=== PATIENT | female | born 1950 | race Caucasian/White ===

== ENCOUNTER 2019-04-28 20:23 | Emergency (ER) | payer MEDICARE ==
--- OUTSIDE RECORDS SUMMARY | 2019-04-28 20:27 | XMS REPORT | Continuity of Care Document ---
:1950 External Reference #:[id number] Author Name Esmerezekiel Pandey, MICROBIOLOGY COORDINATOR-Cde (transmitted by agent of provider April Martins) Address [address], [place] [address] Care Team Providers Name Role Phone Latrell Gan MD - Gastroenterology Care Team Information Welder Machine Operator [phone] Tonia Mcdaniel MD - Internal Medicine Care Team Information Welder Machine Operator [phone] Problems Active Problems Provider Date Mixed hyperlipidemia Karthik Houston M.D. Onset: 05/26/2011 Hypothyroidism Karthik Houston M.D. Onset: 05/26/2011 History of total hysterectomy with bilateral Santos Montaño NP Onset: 2008 salpingo-oophorectomy Note: total abdominal hyste[place] [facility] [place]/ Dr. Pimentel and assisted by Dr. Fay. D/t post-menopausal bleeding and endometrial adenocarcinoma well differentiated Diverticulosis of sigmoid colon Santos Montaño NP Onset: 12/14/2003 Note: very mild; noted on 2003 colonoscopy Essential hypertension Santos Montaño NP Onset: 04/13/2016 Social History Type Date Description Comments Sex Unknown Tobacco Use Reviewed: 08/29/18 Current Cigarette Smoker 2 PPD currently 2018 1 Pack Daily and 2019 Smoking Status Reviewed: 04/13/19 Current Cigarette Smoker 2 PPD currently 2018 1 Pack Daily and 2019 ETOH Use Currently consumes 2-3 glasses wine alcohol daily Tobacco Use Start: Unknown Patient is a current smoker, smokes every day Exercise Does not exercise Type/Frequency Allergies, Adverse Reactions, Alerts Active Allergies Reaction Severity Comments Date Codeine Makes Her Feel Jittery 06/21/2007 Medications Active Medications SIG Qnty Indications Ordering Date Provider Fluticasone Propionate 2 sprays each 16units J30.89 Sea Ellis NP 2017 nostril qd. 50mcg/Act Suspension Proair HFA 2 puffs inhaled 1inhaler 465.9 Sea Ellis NP 02/15/2017 108(90Base) q4-6h prn mcg/Act Aerosol Valsartan-Hydrochlorot take 1 tablet 90tabs I10 Sea Ellis NP 02/28/2012 hiazide by mouth daily 160-25mg Tablets Atorvastatin Calcium take 1 tablet 90tabs E78.2 Sea Ellis NP 11/03/2011 20mg at bedtime Tablets Levothyroxine Sodium take 1 tablet 90tabs E03.9 Sea Ellis NP 12/16/2010 by mouth daily 100mcg Tablets Aspirin 1 po qd 90tabs E78.2 Karthik Gaines 81mg Tablets Merry Houston I10 Zyrtec 1 PO qd prn 90tabs Unknown 10mg Tabs Atenolol take 1 tablet by mouth 90tabs I10 Sea Ellis NP 25mg Tablets daily History Medications Fluconazole one by mouth august 2tabs Sea Ellis NP 12/20/2018 - 150mg Tablets repeat in 3 days 12/24/2018 as needed Immunizations CPT Code Status Date Vaccine Reaction Lot # [id number] Given 04/13/2019 Influenza Virus Vaccine, [id number] Quadrivalent, Split, Preservative Free [id number] Given 08/29/2018 Pneumococcal Conjugate No immediate reaction [id number] Vaccine 13 Valent For Intramuscular Use 20969 Given 02/28/2018 Influenza Virus Vaccine, Quadrivalent, Split, Preservative Free 34669 Given 04/07/2017 Influenza Virus Vaccine, [id number] Quadrivalent, Split, Preservative Free 74857 Given 04/13/2016 Influ Virus Vaccine, [id number] Quadrivalent, Split Virus, [place] [address] Given 04/17/2015 Influenza Virus Vaccine, [id number] Quadrivalent, Split, Preservative Free 70003 Given 01/09/2014 Influenza Virus Vaccine, [id number] Quadrivalent, Split, Preservative Free 76304 Given 02/15/2013 Pneumonia Vaccine [id number] 54456 Given 02/15/2013 Flu Vaccine Split Virus [id number] Preservative Free For Indiv 3Yr Older 21100 Given 12/24/2011 Tdap - [id number] Tetanus/Diptheria/Acellula r Pertussis Vital Signs Date Vital Result Comment 04/13/2019 2:15pm Height 65 inches 5'5" Weight 193.00 lb Heart Rate 75 /min BP Systolic 125 mmHg BP Diastolic 76 mmHg O2 % BldC Oximetry 97 % BMI (Body Mass Index) 32.1 kg/m2 10/31/2018 2:42pm Height 65 inches 5'5" Weight 188.38 lb Heart Rate 78 /min BP Systolic 133 mmHg BP Diastolic 78 mmHg Body Temperature 98.9 F O2 % BldC Oximetry 95 % BMI (Body Mass Index) 31.3 kg/m2 Results Test Acquired Date Facility Test Result H/L Range Note Laboratory test 10/31/2018 [facility] Vitamin B12 566 pg/mL Normal 180-914 [address] [place] [address] [phone] TSH (Thyroid Stim Horm) 2.25 mcIU/mL Normal 0.34-5.60 Comp Metabolic 10/31/2018 [facility] Sodium 140 mmol/L Normal 135-[address] [place], [place] [id number] [phone] Potassium 4.9 mmol/L Normal 3.5-5.0 Chloride 107 mmol/L Normal 101-111 Co2 Carbon Dioxide 26 mmol/L Normal 22-32 Anion Gap 7 mmol/L Normal 2-11 Glucose 114 mg/dL High 70-100 Blood Urea Nitrogen 16 mg/dL Normal 6-24 Creatinine 1.13 mg/dL High 0.51-0.95 BUN/Creatinine Ratio 14.2 Normal 8-20 Calcium 10.0 mg/dL Normal 8.6-10.3 Total Protein 7.6 g/dL Normal 6.4-8.9 Albumin 4.1 g/dL Normal 3.2-5.2 Globulin 3.5 g/dL Normal 2-4 Albumin/Globulin Ratio 1.2 Normal 1-3 Total Bilirubin 1.00 mg/dL Normal 0.2-1.0 Alkaline Phosphatase 158 U/L High 34-104 Alt 48 U/L Normal 7-52 Ast 98 U/L High 13-39 Egfr Non- 48.2 >60 Egfr 58.3 >60 2 CBC Auto 10/31/2018 [facility] White Blood 5.7 10^3/uL Normal 3.5-10.[address] [place] [address] [phone] Red Blood Count 3.71 10^6/uL Normal 3.70-4.87 Hemoglobin 14.7 g/dL Normal 12.0-16.0 Hematocrit 43 % Normal 35-47 Mean Corpuscular Volume 115 fL High 80-97 Mean Corpuscular Hemoglobin 40 pg High 27-31 Mean Corpuscular HGB Conc 34 g/dL Normal 31-36 Red Cell Distribution Width 14 % Normal 10-15 Platelet Count 148 10^3/uL Low 150-450 Mean Platelet Volume 9.0 fL Normal 7.4-10.4 Abs Neutrophils 4.0 10^3/uL Normal 1.5-7.7 Abs Lymphocytes 1.0 10^3/uL Normal 1.0-4.8 Abs Monocytes 0.5 10^3/uL Normal 0-0.8 Abs Eosinophils 0.1 10^3/uL Normal 0-0.6 Abs Basophils 0.1 10^3/uL Normal 0-0.2 Abs Nucleated RBC 0.0 10^3/uL Granulocyte % 71.2 % Lymphocyte % 17.6 % Monocyte % 8.8 % Eosinophil % 1.4 % Basophil % 1.0 % Nucleated Red Blood Cells % 0.1 Cell Morphology 10/31/2018 [facility] Macrocytosis 2+ [address] [place] [address] [phone] Stomatocytes 1+ 1 Normal Range 180 to 914 Indeterminate Range 145 to 180 Deficient Range <145 2 Because ethnic data is not always readily available, this report includes an eGFR for both -Americans and non- Americans. The National Kidney Disease Education Program (NKDEP) does not endorse the use of the MDRD equation for patients that are not between the ages of 18 and 70, are , have extremes of body size, muscle mass, or nutritional status, or are non- or non-. According to the National Kidney Foundation, irrespective of diagnosis, the stage of the disease is based on the level of kidney function: Stage Description GFR(mL/min/1.73 m(2)) 1 Kidney damage with normal or decreased GFR 90 2 Kidney damage with mild decrease in GFR 60-89 3 Moderate decrease in GFR 30-59 4 Severe decrease in GFR 15-29 5 Kidney failure <15 (or dialysis) Procedures Date Code Description Status 04/14/2018 69383450 Mammogram Completed 04/13/2017 [id number] Bone Mineral Density Test Completed 04/13/2017 [id number] Mammogram Completed 01/05/2017 [id number] Colonoscopy Completed 04/09/2016 [id number] Mammogram Completed 04/12/2015 [id number] Mammogram Completed 04/11/2014 [id number] Mammogram Completed 04/18/2013 [id number] Bone Mineral Density Test Completed 04/18/2013 [id number] Mammogram Completed 04/18/2012 [id number] Mammogram Completed 04/15/2011 [id number] Mammogram Completed 11/28/2003 60852220 Colonoscopy Completed Medical Devices Description No Information Available Encounters Type Date Location Provider Dx Diagnosis Office Visit 10/31/2018 [facility] Sea Ellis NP I10 Essential (primary ) 2:20p Medicine - Ccmob hypertension R20.2 Paresthesia of skin L60.0 Ingrowing nail Assessments Date Code Description Provider 04/13/2019 Z01.419 Encounter for gynecological examination Estee Lal (general) (routine) without abnormal findings 04/13/2019 Z12.31 Encounter for screening mammogram for NIXON Lal malignant neoplasm of breast 10/31/2018 I10 Essential (primary) hypertension Sea Ellis NP 10/31/2018 R20.2 Paresthesia of skin Sea Ellis NP 10/31/2018 L60.0 Ingrowing nail Sea Ellis NP Plan of Treatment 04/13/2019 - CORNELIA Lal-CdeZ01.419 Encounter for gynecological examination (general) (routine) without abnormal findingsNew Labs:Cytology, Ordered: 04/13/19Comments:1. For bone health, the recommended amount of calcium is 1200 mg/day. You might benefit from a supplement such as Citracal Petites to make this requirement2. Including a strength training component in your exercise routine is also important for maintaining bone health and muscle strength. I will send you a letter with pap results. Please call the office if you do not receive your results within two weeks.Z12.31 Encounter for screening mammogram for malignant neoplasm of breastNew Xrays:Mammogram Screening Frandy, Ordered: 04/13/19Comments:The radiologist will send you a letter with the results of your mammogram. Please call us if you have any additional quesions or concerns about the test or results. Functional Status Description No Information Available Mental Status Description No Information Available Referrals Refer to Dr Reason for Referral Status Appt Date Arsenio Jain DPM Sent 12/20/2018 [address] [facility] [facility] [address] [place] [address] [phone]
[2019-04-28 20:41] VITALS: BP 155/75
--- NOTE | 2019-04-28 20:47 | UC ---
Head Injury HPI - HPI Summary HPI Summary: 68yo woman who fell about an hour ago. She was walking backwards into her house when she tripped on the entry, and fell directly backwards, and believes that she hit some wine bottles as she hit the ground. No neck pain, no headache, feels a little out of sorts and concerned about the injury. She takes daily aspirin and drinks a minimum of 2 glasses of wine per day, often more. - History Of Current Complaint Chief Complaint: UCHeadInjury Stated Complaint: HEAD INJURY Time Seen by Provider: 04/28/19 20:35 Hx Obtained From: Patient Onset/Duration: Sudden Onset Severity Currently: Mild Severity Initially: Mild Pain Intensity: 2 Character: Dull Aggravating Factor(s): Nothing Alleviating Factor(s): Nothing Associated Signs And Symptoms: Negative: LOC (Time In Secs./Mins/Hrs), Confusion , Memory Loss, Seizure, Epistaxis, Neck Pain, Nausea, Vomiting Anticoagulant Therapy: ASA - Risk Factors SDH Risk Factor: Alcohol Abuse - Allergies/Home Medications Allergies/Adverse Reactions: Allergies Allergy/AdvReac Type Severity Reaction Status Date / Time codeine Allergy See Comment Verified 04/28/19 20:41 PMH/Surg Hx/FS Hx/Imm Hx Endocrine History: Hypothyroidism, Dyslipidemia Cardiovascular History: Hypertension - Surgical History Surgical History: Yes Surgery Procedure, Year, and Place: HYSTERECTOMY 2008 - Family History Known Family History: Positive: Non-Contributory - Social History Occupation: Employed Part-time Alcohol Use: Daily Substance Use Type: None Smoking Status (MU): Heavy Every Day Tobacco Smoker Type: Cigarettes Review of Systems All Other Systems Reviewed And Are Negative: Yes Constitutional: Positive: Negative Skin: Positive: Negative Eyes: Negative: Blurred Vision, Diplopia, Photophobia ENT: Positive: Negative Respiratory: Positive: Negative Cardiovascular: Positive: Negative Gastrointestinal: Positive: Negative Genitourinary: Positive: Negative Motor: Positive: Negative Musculoskeletal: Negative: Arthralgia Neurological: Positive: Headache - mild Psychological: Positive: Negative Is Patient Immunocompromised?: No Physical Exam Triage Information Reviewed: Yes Appearance: No Pain Distress, Other: - mildly anxious, looks older than age. Vital Signs: Initial Vital Signs Temp 98.7 F 04/28/19 20:37 Pulse 76 04/28/19 20:37 Resp 18 04/28/19 20:37 BP 155/75 04/28/19 20:37 Pulse Ox 97 04/28/19 20:37 Eye Exam: Other - JOSEPH, normal eom Eyes: Positive: Conjunctiva Clear ENT: Positive: Pharynx normal, TMs normal Respiratory: Positive: Lungs clear, Normal breath sounds Cardiovascular: Positive: RRR, No Murmur Musculoskeletal Exam: Normal Neurological Exam: Other - Alert and oriented. CNII-XII normal. No pronator drift. Gait normal, can heel to toe walk, negative Romberg No past pointing with finger to nose touching. Neurological: Positive: Alert, Muscle Tone Normal Psychological Exam: Normal - mildly anxious Diagnostics - Radiology No standard instances Radiology Interpretation Completed By: Radiologist - Patient Name: DEWAYNE TORO I Medical Record#: [id number] Ordering Physician: Lorna Almaguer MD Acct.#: [id number] : 1950 Age: 68 Sex: F Location: [facility] Exam Date: 04/28/192057 ADM Status: REG ER Order Information: CT BRAIN WO Accession Number: [id number] CPT: 84786 PROCEDURE INFORMATION: Exam: CT Head Without Contrast Exam date and time: 04/28/2019 9:07 PM Age: 68 years old Clinical indication: Injury or trauma; Fall; Patient HX: Patient is on baby aspirin; Additional info : Fall onto occiput, takes aspirin TECHNIQUE: Imaging protocol: Computed tomography of the head without contrast. Radiation optimization: All CT scans at this facility use at least one of these dose optimization techniques: automated exposure control; mA and/or kV adjustment per patient size (includes targeted exams where dose is matched to clinical indication); or iterative reconstruction. COMPARISON: No relevant prior studies available. FINDINGS: Brain: No acute intracranial hemorrhage, midline shift or mass effect. No cerebral edema. Ventricles: No hydrocephalus. Bones/joints: Unremarkable. No acute fracture. Sinuses: Visualized sinuses are unremarkable. No fluid levels. Mastoid air cells: Visualized mastoid air cells are well aerated. Soft tissues: Left posterior scalp soft tissue injury. IMPRESSION: No acute intracranial abnormality. Dictated and Authenticated by: Jn Massey MD 04/28 9:34 PM Eastern Time ([place] and [place]) To contact [facility] with a general question: [facility] - [phone] For direct physician to physician contact: Physician Hotline - [phone] [facility] ([facility] Facility ID #[id number]) <Electronically signed by Jn Massey MD in OV> 04/28/192133 Dictated By: Jn Massey MD Dictated Date/Time: 04/28/192106 Transcribed Date/Time: 04/28/192106 Copy to: This report is only to be considered final once signed by the Provider(s) as displayed in the "<Electronically Signed by >" field (s). Absence of a signature indicates the report is in a draft status and still needs to be finalized. In the event this document was created by someone other than the signing Provider, the individual initiating the document will be listed in the "Entered by:" or "Dictated by:" hennessy. 1 of 2 Head Injury Course/Dx - Course Course Of Treatment: Normal CT at baseline. Discussed concern of aspirin use and regular daily alcohol intake. Suggested hold aspirin and alcohol, monitor for symptoms which would suggest a subdural. - Differential Dx/Diagnosis Differential Diagnosis/HQI/PQRI: Cervical Sprain, Concussion Without LOC, Contusion, Intracranial Bleed, Other - subdural hemorrhage. Provider Diagnosis: Head injury due to trauma Discharge ED - Sign-Out/Discharge Documenting (check all that apply): Patient Departure All imaging exams completed and their final reports reviewed: Yes - Discharge Plan Condition: Stable Disposition: HOME Patient Education Materials: Head Injury (ED) Referrals: Sea Ellis PERSONAL LOAN SPECIALIST [Primary Care Provider] - Additional Instructions: Yor CT scan and exam are normal. Because you take aspirin and drink alcohol regularly, you have a low risk of subdural hemorrhage. Signs of this would be progressive headache, dizziness, nausea and vision changes. If you hare having symptoms, follow up with your primary care doctor or go directly to the emergency room. Please hold aspirin ofr the next five days and keep alcohol intake to a minimum. You can use acetaminophen 650mg every 6 hours for any mild headache or neck pain. Anticipate some neck stiffness tomorrow. - Billing Disposition and Condition Condition: STABLE Disposition: Home
== END 2019-04-28 22:08 | disposition home or self-care (01) ==
LOC: UCEAST 20:23
DX: S09.90XA Unspecified injury of head, initial encounter (principal); I10 Essential (primary) hypertension; F17.210 Nicotine dependence, cigarettes, uncomplicated; Z79.82 Long term (current) use of aspirin; Z88.5 Allergy status to narcotic agent; W01.198A Fall on same level from slipping, tripping and stumbling with subsequent striking against other object, initial encounter; Y93.01 Activity, walking, marching and hiking; Y92.009 Unspecified place in unspecified non-institutional (private) residence as the place of occurrence of the external cause
CPT/HCPCS: 70450; 99211; G0463

== ENCOUNTER 2020-01-07 19:47 | Inpatient (IN) ==
[2020-01-07] MEDS ORDERED: NS 0.9% 1000 ml BAG 1,000 ML IV ONE (20:39)
[2020-01-07] MEDS ORDERED: Thiamine 100 MG/ML 2 ml VIAL (200 mg) IM ONE (20:39)
[2020-01-07] MEDS ORDERED: Ondansetron 4 mg VIAL 2 MG/ML 2 ml VIAL IV ONE (20:41)
[2020-01-07 21:07] LABS: ABS Monocytes 0.6 10^3/ul (0-0.8); Eosinophil % 0.4 %; Hematocrit 41 % (35-47); Hemoglobin 13.9 g/dL (12.0-16.0); Lymphocyte % 13.6 %; Mean Corpuscular HGB Conc 34 g/dL (31-36); Mean Corpuscular Hemoglobin 38 pg (27-31); Mean Corpuscular Volume 112 fL (80-97); Mean Platelet Volume 8.4 fL (7.4-10.4); Nucleated Red Blood Cells % 0.2; Platelet Count 138 10^3/uL (150-450); Red Blood Count 3.68 10^6 /uL (3.70-4.87); Red Cell Distribution Width 16 % (10-15); White Blood Count 7.7 10^3/uL (3.5-10.8)
[2020-01-07 21:22] LABS: Acetaminophen < 15 mcg/mL; Alcohol, S < 10 mg/dL (<10)
[2020-01-07 21:26] LABS: ALT 56 U/L (7-52); AST 94 U/L (13-39); Albumin 3.2 g/dL (3.2-5.2); Albumin/Globulin Ratio 0.8 (1-3); Alkaline Phosphatase 169 U/L (34-104); Anion Gap 11 mmol/L (2-11); BUN/Creatinine Ratio 11.7 (8-20); Blood Urea Nitrogen 11 mg/dL (6-24); CO2 Carbon Dioxide 23 mmol/L (22-32); Calcium 10.6 mg/dL (8.6-10.3); Chloride 101 mmol/L (101-111); EGFR African American 71.9 (>60); EGFR Non-African American 59.4 (>60); Globulin 4.1 g/dL (2-4); Glucose 129 mg/dL (70-100); Potassium 3.3 mmol/L (3.5-5.0); Sodium 135 mmol/L (135-145); Total Protein 7.3 g/dL (6.4-8.9)
[2020-01-07 21:29] LABS: Troponin I 0.03 ng/mL (<0.03)
[2020-01-07 21:42] LABS: TSH Ultra Thyroid Stim Horm 0.02 mcIU/mL (0.34-5.60)
[2020-01-07] MEDS ORDERED: Iodixanol (CONTRAST) 320 MG/ML 100 ML SDV IV ONE (22:25)
[2020-01-07 23:55] LABS: Urine Appearance Cloudy; Urine Bilirubin 1+ (Negative); Urine Blood Negative (Negative); Urine Color Amber; Urine Glucose Negative (Negative); Urine Ketones Negative (Negative); Urine Nitrite Negative (Negative); Urine Protein 1+(30 mg/dL) (Negative); Urine Urobilinogen Positive (Negative)
[2020-01-08 00:02] LABS: Urine Bacteria Absent (Absent); Urine Red Blood Cell 1+(3-5/hpf) (Absent); Urine Squamous Epithelial Cell Present (Absent); Urine White Blood Cell Absent (Absent)
[2020-01-08 00:18] LABS: Urine Specific Gravity > 1.030 (1.010-1.030)
[2020-01-08] MEDS ORDERED: Ondansetron 4 mg VIAL 2 MG/ML 2 ml VIAL IV PRN (01:28)
[2020-01-08] MEDS ORDERED: Al Hydrox/Mg Hydrox/Simet LIQ 30 ML UDC PO PRN (01:28)
[2020-01-08] MEDS ORDERED: Potassium Chloride LIQUID 20 MEQ/15 ML LIQUID PO ONE (01:34)
[2020-01-08] MEDS ORDERED: Pantoprazole VIAL 40 MG VIAL IV ONE (01:50)
[2020-01-08] MEDS ORDERED: Lactulose 30 ml UDC PO ONE (02:00)
[2020-01-08] MEDS ORDERED: LORazepam 2 mg VIAL 1 ml IV PUSH SCH (02:00)
[2020-01-08 02:07] LABS: Magnesium 1.3 mg/dL (1.9-2.7)
[2020-01-08] MEDS ORDERED: Magnesium Sulfate IV 3 GM in NS 0.9% 100 ml BAG 100 ML IVPB ONE (02:11)
[2020-01-08 02:26] LABS: Free T4 2.35 ng/dL (0.61-1.12)
[2020-01-08 02:34] LABS: Folate 2.13 ng/mL (>3.99)
[2020-01-08 02:35] LABS: Vitamin B12 992 pg/mL (180-914)
[2020-01-08 02:51] LABS: Activated Partial Thrombo Time 28.3 seconds (26.0-38.0)
[2020-01-08 03:05] LABS: Troponin I 0.03 ng/mL (<0.03)
[2020-01-08 04:03] LABS: Erythrocyte Sed Rate 48 mm/Hr (0-29)
[2020-01-08] MEDS: Nicotine PATCH 21 MG/24 HR PATCH TRANSDERM SCH (04:03)
[2020-01-08] MEDS: NS 0.9% 1000 ml BAG 1,000 ML IV SCH ×2 (04:04→14:12)
[2020-01-08 04:57] LABS: INR 1.47 (0.82-1.09)
[2020-01-08] MEDS: Heparin 5000 UNITS/ML 1 mL VIAL SUBCUT SCH ×3 (05:06→22:21)
[2020-01-08 07:54] LABS: ALT 50 U/L (7-52); AST 82 U/L (13-39); Albumin/Globulin Ratio 0.8 (1-3); Alkaline Phosphatase 151 U/L (34-104); Anion Gap 7 mmol/L (2-11); BUN/Creatinine Ratio 11.4 (8-20); Blood Urea Nitrogen 10 mg/dL (6-24); CO2 Carbon Dioxide 23 mmol/L (22-32); Chloride 107 mmol/L (101-111); EGFR African American 77.6 (>60); EGFR Non-African American 64.1 (>60); Globulin 3.7 g/dL (2-4); Glucose 87 mg/dL (70-100); Indirect Bilirubin 1.3 mg/dL (0.3-1.0); Potassium 3.7 mmol/L (3.5-5.0); Sodium 137 mmol/L (135-145); Total Protein 6.7 g/dL (6.4-8.9)
[2020-01-08] MEDS: Lactulose 30 ml UDC PO SCH ×4 (07:57→20:57)
[2020-01-08] MEDS: Multivitamins/Minerals TAB PO SCH (07:58)
[2020-01-08 08:02] LABS: Troponin I 0.03 ng/mL (<0.03)
[2020-01-08 08:25] LABS: ABS Eosinophils 0.1 10^3/ul (0-0.6); ABS Lymphocytes 1.9 10^3/ul (1.0-4.8); ABS Monocytes 0.7 10^3/ul (0-0.8); ABS Neutrophils 5.8 10^3/ul (1.5-7.7); Eosinophil % 0.8 %; Hematocrit 39 % (35-47); Mean Corpuscular HGB Conc 33 g/dL (31-36); Mean Corpuscular Hemoglobin 38 pg (27-31); Mean Corpuscular Volume 114 fL (80-97); Mean Platelet Volume 8.9 fL (7.4-10.4); Nucleated Red Blood Cells % 0.2; Platelet Count 139 10^3/uL (150-450); Red Blood Count 3.45 10^6 /uL (3.70-4.87); Red Cell Distribution Width 16 % (10-15); White Blood Count 8.4 10^3/uL (3.5-10.8)
[2020-01-08 11:22] LABS: Magnesium 1.3 mg/dL (1.9-2.7)
[2020-01-08 13:49] LABS: Hepatitis A Ab IgM Negative (Negative)
[2020-01-09] MEDS: NS 0.9% 1000 ml BAG 1,000 ML IV SCH (00:45)
[2020-01-09 05:18] LABS: Hematocrit 33 % (35-47); Hemoglobin 11.1 g/dL (12.0-16.0); Mean Corpuscular HGB Conc 33 g/dL (31-36); Mean Corpuscular Hemoglobin 38 pg (27-31); Mean Corpuscular Volume 114 fL (80-97); Mean Platelet Volume 8.7 fL (7.4-10.4); Platelet Count 120 10^3/uL (150-450); Red Blood Count 2.93 10^6 /uL (3.70-4.87); Red Cell Distribution Width 16 % (10-15); White Blood Count 6.8 10^3/uL (3.5-10.8)
[2020-01-09 05:34] LABS: Albumin 2.5 g/dL (3.2-5.2); Albumin/Globulin Ratio 0.8 (1-3); BUN/Creatinine Ratio 12.4 (8-20); Calcium 9.4 mg/dL (8.6-10.3); EGFR African American 76.5 (>60); EGFR Non-African American 63.3 (>60); Globulin 3.2 g/dL (2-4); Magnesium 1.9 mg/dL (1.9-2.7); Potassium 3.6 mmol/L (3.5-5.0); Total Bilirubin 1.7 mg/dL (0.2-1.0); Total Protein 5.7 g/dL (6.4-8.9)
[2020-01-09] MEDS: Heparin 5000 UNITS/ML 1 mL VIAL SUBCUT SCH ×2 (06:08→15:59)
[2020-01-09] MEDS ORDERED: Magnesium Sulfate 2 gm BAG 2 GM/50 ML BAG IVPB ONE (07:00)
[2020-01-09] MEDS: Lactulose 30 ml UDC PO SCH ×2 (08:59→15:58)
[2020-01-09] MEDS: Nicotine PATCH 21 MG/24 HR PATCH TRANSDERM SCH (09:01)
[2020-01-09] MEDS: Multivitamins/Minerals TAB PO SCH (09:01)
[2020-01-09 22:17] VITALS: BP 110/50
== END 2020-01-09 19:05 | disposition home or self-care (01) | DRG 443 ==
LOC: MED 19:47 → ED 19:47 → MED 01-08 02:54
PROVIDERS: ADMIT Pediatrics; ATTEND Internal Medicine

== ENCOUNTER 2020-02-02 18:42 | Observation (INO) ==
[2020-02-02 22:15] LABS: ABS Eosinophils 0.1 10^3/ul (0-0.6); ABS Lymphocytes 1.3 10^3/ul (1.0-4.8); ABS Monocytes 1.3 10^3/ul (0-0.8); ABS Neutrophils 6.1 10^3/ul (1.5-7.7); Eosinophil % 0.6 %; Hematocrit 36 % (35-47); Lymphocyte % 14.6 %; Mean Corpuscular HGB Conc 34 g/dL (31-36); Mean Corpuscular Hemoglobin 37 pg (27-31); Mean Corpuscular Volume 110 fL (80-97); Mean Platelet Volume 8.2 fL (7.4-10.4); Platelet Count 195 10^3/uL (150-450); Red Blood Count 3.24 10^6 /uL (3.70-4.87); Red Cell Distribution Width 15 % (10-15); White Blood Count 8.8 10^3/uL (3.5-10.8)
[2020-02-02 22:26] LABS: Albumin 2.7 g/dL (3.2-5.2); Albumin/Globulin Ratio 0.7 (1-3); BUN/Creatinine Ratio 11.1 (8-20); C Reactive Protein 12.98 mg/L (<8.01); Calcium 9.8 mg/dL (8.6-10.3); EGFR African American 75.6 (>60); EGFR Non-African American 62.5 (>60); Globulin 4.1 g/dL (2-4); Potassium 4.8 mmol/L (3.5-5.0); Total Protein 6.8 g/dL (6.4-8.9)
[2020-02-03] MEDS ORDERED: Ondansetron 4 mg VIAL 2 MG/ML 2 ml VIAL IV PRN (00:36)
[2020-02-03] MEDS ORDERED: cefTRIAXone 1 gm/50 mL NS BAG 1 GM/50 ML BAG IVPB ONE (00:42)
[2020-02-03] MEDS ORDERED: NS 0.9% 500 ml BAG 500 ML IV ONE ×3 (01:15→19:57)
[2020-02-03] MEDS ORDERED: Albuterol HFA INHALER 8 gm MDI INH PRN (01:47)
[2020-02-03] MEDS: Enoxaparin 40 MG/0.4 ML SYR SUBCUT SCH ×2 (02:06→20:57)
[2020-02-03] MEDS: Multivitamins/Minerals TAB PO SCH (09:50)
[2020-02-03] MEDS: Aspirin EC 81 mg TAB.EC (enteric coated) PO SCH (09:50)
[2020-02-03 11:18] LABS: BUN/Creatinine Ratio 11.3 (8-20); Calcium 9.3 mg/dL (8.6-10.3); EGFR African American 69.3 (>60); EGFR Non-African American 57.3 (>60); Potassium 4.2 mmol/L (3.5-5.0)
[2020-02-03 11:40] LABS: TSH Ultra Thyroid Stim Horm 5.86 mcIU/mL (0.34-5.60)
[2020-02-03] MEDS: Nicotine PATCH 21 MG/24 HR PATCH TRANSDERM SCH (12:49)
[2020-02-03] MEDS ORDERED: Influenza VAC *QUAD* 2020-21* 0.5 ML SYRINGE IM ONE (13:00)
[2020-02-03 18:31] LABS: Urine Appearance Cloudy; Urine Bilirubin Negative (Negative); Urine Blood 3+ (Negative); Urine Color Amber; Urine Glucose Negative (Negative); Urine Ketones Trace (Negative); Urine Nitrite Negative (Negative); Urine Protein Negative (Negative); Urine Specific Gravity 1.024 (1.010-1.030); Urine Urobilinogen Negative (Negative)
[2020-02-03 18:36] LABS: Urine Bacteria 2+ (Absent); Urine Red Blood Cell 1+(3-5/hpf) (Absent); Urine Squamous Epithelial Cell Present (Absent); Urine White Blood Cell Trace(0-5/hpf) (Absent)
[2020-02-03 18:45] LABS: Urine Creatinine Concentration 260.87 mg/dL; Urine Potassium Concentration 74.9 mmol/L; Urine Sodium Concentration < 18 mmol/L
[2020-02-03 19:08] LABS: BUN/Creatinine Ratio 11.1 (8-20); Calcium 9.5 mg/dL (8.6-10.3); EGFR African American 67.7 (>60); EGFR Non-African American 55.9 (>60); Potassium 4.2 mmol/L (3.5-5.0)
[2020-02-03 19:42] LABS: Hematocrit 34 % (35-47); Hemoglobin 11.4 g/dL (12.0-16.0)
[2020-02-03] MEDS ORDERED: Witch Hazel PAD JAR TOPICAL PRN (20:00)
[2020-02-03] MEDS: Witch Hazel PAD JAR TOPICAL SCH (22:35)
[2020-02-04 00:14] LABS: BUN/Creatinine Ratio 11.1 (8-20); Calcium 9.5 mg/dL (8.6-10.3); EGFR African American 67.7 (>60); EGFR Non-African American 55.9 (>60); Potassium 4.4 mmol/L (3.5-5.0)
[2020-02-04] MEDS ORDERED: NS 0.9% 500 ml BAG 500 ML IV ONE (02:24)
[2020-02-04 06:50] LABS: ABS Basophils 0.1 10^3/ul (0-0.2); ABS Eosinophils 0.2 10^3/ul (0-0.6); ABS Lymphocytes 1.7 10^3/ul (1.0-4.8); ABS Monocytes 1.3 10^3/ul (0-0.8); ABS Neutrophils 4.8 10^3/ul (1.5-7.7); Eosinophil % 2.3 %; Hematocrit 30 % (35-47); Hemoglobin 10.2 g/dL (12.0-16.0); Lymphocyte % 21.2 %; Mean Corpuscular HGB Conc 34 g/dL (31-36); Mean Corpuscular Hemoglobin 37 pg (27-31); Mean Corpuscular Volume 108 fL (80-97); Mean Platelet Volume 8.2 fL (7.4-10.4); Nucleated Red Blood Cells % 0.1; Platelet Count 188 10^3/uL (150-450); Red Blood Count 2.76 10^6 /uL (3.70-4.87); Red Cell Distribution Width 15 % (10-15); White Blood Count 8.1 10^3/uL (3.5-10.8)
[2020-02-04 07:30] LABS: ALT 27 U/L (7-52); Albumin 2.3 g/dL (3.2-5.2); Albumin/Globulin Ratio 0.7 (1-3); Alkaline Phosphatase 115 U/L (34-104); BUN/Creatinine Ratio 12.5 (8-20); Blood Urea Nitrogen 12 mg/dL (6-24); CO2 Carbon Dioxide 19 mmol/L (22-32); Calcium 8.7 mg/dL (8.6-10.3); Chloride 104 mmol/L (101-111); EGFR African American 70.1 (>60); Globulin 3.5 g/dL (2-4); Glucose 112 mg/dL (70-100); Sodium 127 mmol/L (135-145); Total Protein 5.8 g/dL (6.4-8.9)
[2020-02-04 08:04] LABS: AST 47 U/L (13-39); Anion Gap 4 mmol/L (2-11); Indirect Bilirubin 1.2 mg/dL (0.3-1.0); Potassium 4.2 mmol/L (3.5-5.0)
[2020-02-04 08:48] LABS: % Iron Saturation 50 % (15-55); Iron 57 ug/dL (50-212); Total Iron Binding Capacity 115 mcg/dL (250-450); Transferrin 82 mg/dL (203-362); Unsaturated Iron Binding < 100 ug/dL
[2020-02-04 09:11] LABS: Ferritin 361.7 ng/mL (11-307)
[2020-02-04 09:15] LABS: Folate 8.46 ng/mL (>3.99); Vitamin B12 899 pg/mL (180-914)
[2020-02-04] MEDS: Multivitamins/Minerals TAB PO SCH (10:35)
[2020-02-04] MEDS: Aspirin EC 81 mg TAB.EC (enteric coated) PO SCH (10:35)
[2020-02-04] MEDS: Nicotine PATCH 21 MG/24 HR PATCH TRANSDERM SCH (10:35)
[2020-02-04] MEDS: Witch Hazel PAD JAR TOPICAL SCH ×2 (10:40→20:58)
[2020-02-04] MEDS: Enoxaparin 40 MG/0.4 ML SYR SUBCUT SCH (20:52)
[2020-02-05 06:56] LABS: ABS Basophils 0.1 10^3/ul (0-0.2); ABS Eosinophils 0.2 10^3/ul (0-0.6); ABS Lymphocytes 1.6 10^3/ul (1.0-4.8); ABS Monocytes 1.3 10^3/ul (0-0.8); ABS Neutrophils 3.8 10^3/ul (1.5-7.7); Eosinophil % 3.2 %; Hematocrit 28 % (35-47); Hemoglobin 9.7 g/dL (12.0-16.0); Lymphocyte % 23.2 %; Mean Corpuscular HGB Conc 34 g/dL (31-36); Mean Corpuscular Hemoglobin 37 pg (27-31); Mean Corpuscular Volume 109 fL (80-97); Mean Platelet Volume 7.8 fL (7.4-10.4); Platelet Count 173 10^3/uL (150-450); Red Cell Distribution Width 15 % (10-15)
[2020-02-05 07:01] LABS: BUN/Creatinine Ratio 11.3 (8-20); Calcium 8.8 mg/dL (8.6-10.3); EGFR African American 56.9 (>60); EGFR Non-African American 47.1 (>60)
[2020-02-05] MEDS: Multivitamins/Minerals TAB PO SCH (07:43)
[2020-02-05] MEDS: Witch Hazel PAD JAR TOPICAL SCH ×2 (07:43→21:37)
[2020-02-05] MEDS: Nicotine PATCH 21 MG/24 HR PATCH TRANSDERM SCH (07:43)
[2020-02-05] MEDS ORDERED: Perflutren Lipid Microsphere 3 ML VIAL ONE (08:34)
[2020-02-06 06:52] LABS: ABS Eosinophils 0.3 10^3/ul (0-0.6); ABS Lymphocytes 1.3 10^3/ul (1.0-4.8); ABS Monocytes 1.2 10^3/ul (0-0.8); ABS Neutrophils 4.2 10^3/ul (1.5-7.7); Eosinophil % 4.4 %; Hematocrit 30 % (35-47); Hemoglobin 10.6 g/dL (12.0-16.0); Lymphocyte % 18.6 %; Mean Corpuscular HGB Conc 35 g/dL (31-36); Mean Corpuscular Hemoglobin 38 pg (27-31); Mean Corpuscular Volume 107 fL (80-97); Mean Platelet Volume 7.7 fL (7.4-10.4); Platelet Count 182 10^3/uL (150-450); Red Blood Count 2.83 10^6 /uL (3.70-4.87); Red Cell Distribution Width 15 % (10-15); White Blood Count 7.1 10^3/uL (3.5-10.8)
[2020-02-06 07:03] LABS: Albumin 2.2 g/dL (3.2-5.2); Albumin/Globulin Ratio 0.6 (1-3); Calcium 9.4 mg/dL (8.6-10.3); EGFR African American 66.9 (>60); EGFR Non-African American 55.3 (>60); Globulin 3.7 g/dL (2-4); Potassium 3.9 mmol/L (3.5-5.0); Total Bilirubin 1.5 mg/dL (0.2-1.0); Total Protein 5.9 g/dL (6.4-8.9)
[2020-02-06 09:01] VITALS: BP 107/47
[2020-02-06] MEDS: Multivitamins/Minerals TAB PO SCH (09:44)
[2020-02-06] MEDS: Witch Hazel PAD JAR TOPICAL SCH (09:49)
[2020-02-06] MEDS: Nicotine PATCH 21 MG/24 HR PATCH TRANSDERM SCH (11:27)
== END 2020-02-06 12:00 | disposition home health service (06) | DRG 603 ==
LOC: MED 18:42 → ED 18:42
PROVIDERS: ADMIT Internal Medicine Interventional Cardiology; ATTEND Pediatrics

== ENCOUNTER 2020-12-20 12:07 | Inpatient (IN) ==
[2020-12-20] MEDS ORDERED: Lactated Ringers 1000 ml BAG 1,000 ML IV ONE ×2 (13:43→16:04)
[2020-12-20 15:14] LABS: Hematocrit 36 % (35-47); Hemoglobin 11.6 g/dL (12.0-16.0); Mean Corpuscular HGB Conc 33 g/dL (31-36); Mean Corpuscular Hemoglobin 32 pg (27-31); Mean Corpuscular Volume 98 fL (80-97); Red Blood Count 3.64 10^6 /uL (3.70-4.87); Red Cell Distribution Width 15 % (10-15); White Blood Count 15.8 10^3/uL (3.5-10.8)
[2020-12-20 15:16] LABS: ABS Lymphocytes 0.5 10^3/ul (1.0-4.8); ABS Monocytes 0.5 10^3/ul (0-0.8); ABS Neutrophils 14.8 10^3/ul (1.5-7.7); Eosinophil % 0.1 %; Lymphocyte % 3.4 %
[2020-12-20 15:38] LABS: Platelet Count 96 10^3/uL (150-450)
[2020-12-20 15:39] LABS: Blood Urea Nitrogen 20 mg/dL (6-24); CO2 Carbon Dioxide 22 mmol/L (22-32); Chloride 96 mmol/L (101-111); EGFR Non-African American 35.6 (>60); Glucose 83 mg/dL (70-100); Sodium 129 mmol/L (135-145)
[2020-12-20 15:40] LABS: ALT 15 U/L (7-52); Albumin 2.3 g/dL (3.2-5.2); Albumin/Globulin Ratio 0.5 (1-3); Alkaline Phosphatase 87 U/L (35-149); Calcium 9.3 mg/dL (8.6-10.3); EGFR African American 43.1 (>60); Globulin 4.7 g/dL (2-4)
[2020-12-20 16:03] LABS: Anion Gap 11 mmol/L (2-11); Troponin I 0.09 ng/mL (<0.03)
[2020-12-20] MEDS ORDERED: Vancomycin 1,000 MG in NS 0.9% 250 ml 250 ML IVPB ONE (16:03)
[2020-12-20] MEDS ORDERED: Cefepime 2 GM in Dextrose 2 GM/50 ML BAG IV ONE (16:03)
[2020-12-20] MEDS ORDERED: Lidocaine 1% VIAL 10 MG/ML VIAL INJ ONE (16:18)
[2020-12-20 17:40] LABS: Body Fluid Source Peritonial Fluid
[2020-12-20 17:46] LABS: Body Fluid Appearance Cloudy; Body Fluid Color Yellow
[2020-12-20] MEDS ORDERED: ALBUMIN HUMAN 25% IV ONE (18:41)
[2020-12-20 18:47] LABS: Body Fluid WBC 5986 /mcL
[2020-12-20 18:49] LABS: Urine Appearance Turbid; Urine Bilirubin Negative (Negative); Urine Blood 3+ (Negative); Urine Color Amber; Urine Glucose Negative (Negative); Urine Ketones Negative (Negative); Urine Nitrite Negative (Negative); Urine Protein 3+(>=500 mg/dL) (Negative); Urine Specific Gravity 1.024 (1.002-1.030); Urine Urobilinogen Negative (Negative)
[2020-12-20 19:09] LABS: Urine Bacteria 3+ (Absent); Urine Red Blood Cell 3+(>10/hpf) (Absent); Urine Squamous Epithelial Cell Present (Absent); Urine White Blood Cell 3+(>20/hpf) (Absent)
[2020-12-20 19:16] LABS: Body Fluid Mono 15 %; Body Fluid Total Cells Counted 200
[2020-12-20] MEDS ORDERED: NS 0.9% 1000 ml BAG 1,000 ML IV SCH (20:15)
[2020-12-20] MEDS ORDERED: Albuterol HFA INHALER 8 gm MDI INH PRN (20:33)
[2020-12-20 20:55] LABS: INR 1.9 (0.86-1.15)
[2020-12-20] MEDS ORDERED: Nicotine Lozenge mini 2 MG LOZNG.MINI MT PRN (22:10)
[2020-12-20] MEDS: Heparin 5000 UNITS/ML 1 mL VIAL SUBCUT SCH (22:16)
[2020-12-20] MEDS: Albumin Human 25% 25 GM/100 ML IV SCH (23:45)
[2020-12-21 00:58] LABS: Troponin I 0.03 ng/mL (<0.03)
[2020-12-21] MEDS: Albumin Human 25% 25 GM/100 ML IV SCH ×3 (01:30→04:49)
[2020-12-21] MEDS: cefTRIAXone 1 gm/50 mL NS BAG 1 GM/50 ML BAG IVPB SCH (05:48)
[2020-12-21] MEDS: Heparin 5000 UNITS/ML 1 mL VIAL SUBCUT SCH ×3 (05:48→21:13)
[2020-12-21 05:49] LABS: ABS Lymphocytes 0.7 10^3/ul (1.0-4.8); ABS Monocytes 0.5 10^3/ul (0-0.8); ABS Neutrophils 10.4 10^3/ul (1.5-7.7); Eosinophil % 0.1 %; Hematocrit 24 % (35-47); Hemoglobin 8.2 g/dL (12.0-16.0); Lymphocyte % 6.1 %; Mean Corpuscular HGB Conc 34 g/dL (31-36); Mean Corpuscular Hemoglobin 32 pg (27-31); Mean Corpuscular Volume 95 fL (80-97); Mean Platelet Volume 6.5 fL (7.4-10.4); Platelet Count 229 10^3/uL (150-450); Red Blood Count 2.56 10^6 /uL (3.70-4.87); Red Cell Distribution Width 14 % (10-15); White Blood Count 11.6 10^3/uL (3.5-10.8)
[2020-12-21 06:05] LABS: Calcium 9.4 mg/dL (8.6-10.3); EGFR African American 45.2 (>60); EGFR Non-African American 37.4 (>60); Potassium 4.4 mmol/L (3.5-5.0)
[2020-12-21] MEDS: Multivitamins/Minerals TAB PO SCH (07:09)
[2020-12-21] MEDS ORDERED: Lactated Ringers 1000 ml BAG 1,000 ML IV SCH (08:00)
[2020-12-21 08:16] LABS: Magnesium 1.2 mg/dL (1.9-2.7); Phosphorus 3.1 mg/dL (2.5-5.0)
[2020-12-21] MEDS ORDERED: Magnesium Sulf 4 GM/100 ML IV 4,000 MG/100 ML BAG IVPB ONE (11:08)
[2020-12-21] MEDS: Morphine 2 MG/ML SYRINGE IV PRN ×2 (19:35→22:37)
[2020-12-21] MEDS: Ondansetron 4 mg VIAL 2 MG/ML 2 ml VIAL IV PRN (20:13)
[2020-12-22] MEDS ORDERED: Lactated Ringers 1000 ml BAG 1,000 ML IV SCH (02:00)
[2020-12-22 04:30] LABS: ABS Lymphocytes 0.7 10^3/ul (1.0-4.8); ABS Monocytes 0.6 10^3/ul (0-0.8); Hematocrit 29 % (35-47); Hemoglobin 9.8 g/dL (12.0-16.0); Lymphocyte % 4.5 %; Mean Corpuscular HGB Conc 34 g/dL (31-36); Mean Corpuscular Hemoglobin 32 pg (27-31); Mean Corpuscular Volume 95 fL (80-97); Mean Platelet Volume 6.7 fL (7.4-10.4); Platelet Count 339 10^3/uL (150-450); Red Blood Count 3.08 10^6 /uL (3.70-4.87); Red Cell Distribution Width 14 % (10-15); White Blood Count 16.3 10^3/uL (3.5-10.8)
[2020-12-22 04:50] LABS: Albumin 2.7 g/dL (3.2-5.2); EGFR African American 40.2 (>60); EGFR Non-African American 33.3 (>60); Globulin 2.8 g/dL (2-4); Potassium 4.2 mmol/L (3.5-5.0); Total Protein 5.5 g/dL (6.4-8.9)
[2020-12-22] MEDS: Ondansetron 4 mg VIAL 2 MG/ML 2 ml VIAL IV PRN (04:52)
[2020-12-22] MEDS: cefTRIAXone 1 gm/50 mL NS BAG 1 GM/50 ML BAG IVPB SCH (05:53)
[2020-12-22] MEDS: Heparin 5000 UNITS/ML 1 mL VIAL SUBCUT SCH ×3 (06:29→21:23)
[2020-12-22] MEDS: Multivitamins/Minerals TAB PO SCH ×2 (07:41→07:48)
[2020-12-22] MEDS ORDERED: Perflutren Lipid Microsphere 3 ML VIAL ONE (08:02)
[2020-12-22 09:00] LABS: Magnesium 2.2 mg/dL (1.9-2.7); Phosphorus 3.7 mg/dL (2.5-5.0)
[2020-12-22] MEDS ORDERED: Albumin Human 25% 25 GM/100 ML BTL IV ONE (15:30)
[2020-12-22] MEDS ORDERED: Albumin Human 5% 12.5 GM/250 ML BTL IV ONE ×2 (16:17→16:19)
[2020-12-22] MEDS: Albumin Human 25% 12.5 GM/50 ML BTL IV ONE ×2 (16:20→16:29)
[2020-12-23 05:22] LABS: Hematocrit 28 % (35-47); Hemoglobin 9.4 g/dL (12.0-16.0); Mean Corpuscular HGB Conc 34 g/dL (31-36); Mean Corpuscular Hemoglobin 32 pg (27-31); Mean Corpuscular Volume 95 fL (80-97); Mean Platelet Volume 6.7 fL (7.4-10.4); Platelet Count 313 10^3/uL (150-450); Red Blood Count 2.94 10^6 /uL (3.70-4.87); Red Cell Distribution Width 14 % (10-15); White Blood Count 15.8 10^3/uL (3.5-10.8)
[2020-12-23 05:38] LABS: Albumin 2.5 g/dL (3.2-5.2); Calcium 9.8 mg/dL (8.6-10.3); EGFR African American 30.7 (>60); EGFR Non-African American 25.4 (>60); Globulin 2.4 g/dL (2-4); Potassium 3.9 mmol/L (3.5-5.0); Total Bilirubin 0.8 mg/dL (0.2-1.0); Total Protein 4.9 g/dL (6.4-8.9)
[2020-12-23] MEDS: cefTRIAXone 1 gm/50 mL NS BAG 1 GM/50 ML BAG IVPB SCH (06:13)
[2020-12-23] MEDS: Heparin 5000 UNITS/ML 1 mL VIAL SUBCUT SCH ×3 (06:13→22:27)
[2020-12-23] MEDS: Multivitamins/Minerals TAB PO SCH (07:59)
[2020-12-23] MEDS ORDERED: cefTRIAXone 1 gm/50 mL NS BAG 1 GM/50 ML BAG IVPB ONE (10:08)
[2020-12-23] MEDS ORDERED: Albumin Human 25% 25 GM/100 ML BTL IV ONE (11:00)
[2020-12-23] MEDS: Octreotide Acetate 500 MCG in NS 0.9% 100 ml BAG 100 ML IV SCH ×2 (13:04→23:38)
[2020-12-23 13:16] LABS: Glucose, BF 20 mg/dL
[2020-12-23 13:21] LABS: Fluid Type, Protein, Total PERIOTONEAL; Total Protein, BF 1.5 g/dL
[2020-12-23] MEDS: Albumin Human 25% 25 GM/100 ML BTL IV SCH ×3 (15:44→17:02)
[2020-12-23] MEDS: Pantoprazole VIAL 40 MG VIAL IV SCH (19:20)
[2020-12-24 04:44] LABS: Hematocrit 23 % (35-47); Mean Corpuscular HGB Conc 34 g/dL (31-36); Mean Corpuscular Hemoglobin 32 pg (27-31); Mean Corpuscular Volume 95 fL (80-97); Mean Platelet Volume 6.7 fL (7.4-10.4); Platelet Count 255 10^3/uL (150-450); Red Blood Count 2.48 10^6 /uL (3.70-4.87); Red Cell Distribution Width 14 % (10-15); White Blood Count 10.2 10^3/uL (3.5-10.8)
[2020-12-24 04:49] LABS: INR 1.84 (0.86-1.15)
[2020-12-24 05:00] LABS: Albumin/Globulin Ratio 1.5 (1-3); Calcium 10.1 mg/dL (8.6-10.3); EGFR Non-African American 20.7 (>60); Magnesium 2.3 mg/dL (1.9-2.7); Phosphorus 3.7 mg/dL (2.5-5.0); Potassium 3.9 mmol/L (3.5-5.0); Total Bilirubin 0.9 mg/dL (0.2-1.0)
[2020-12-24] MEDS: Heparin 5000 UNITS/ML 1 mL VIAL SUBCUT SCH ×3 (05:58→20:52)
[2020-12-24] MEDS: cefTRIAXone 2 GM ADDV.VIAL 2 GM in NS 0.9% 100 ml BAG 100 ML IV SCH (08:12)
[2020-12-24] MEDS: Multivitamins/Minerals TAB PO SCH (08:12)
[2020-12-24] MEDS: Octreotide Acetate 500 MCG in NS 0.9% 100 ml BAG 100 ML IV SCH ×2 (08:37→18:17)
[2020-12-24] MEDS ORDERED: Lactated Ringers 500 ml BAG 500 ML IV ONE (09:30)
[2020-12-24] MEDS: Albumin Human 25% 25 GM/100 ML BTL IV SCH (11:11)
[2020-12-24] MEDS: Pantoprazole VIAL 40 MG VIAL IV SCH (17:10)
[2020-12-24] MEDS: Morphine 2 MG/ML SYRINGE IV PRN (23:48)
[2020-12-25] MEDS: Norepinephrine 16MCG/ML IVPRE 4,000 MCG/250 ML BAG IV SCH ×3 (01:17→21:44)
[2020-12-25] MEDS: Octreotide Acetate 500 MCG in NS 0.9% 100 ml BAG 100 ML IV SCH ×2 (04:29→14:22)
[2020-12-25 04:35] LABS: ABS Lymphocytes 0.6 10^3/ul (1.0-4.8); ABS Monocytes 0.9 10^3/ul (0-0.8); ABS Neutrophils 15.3 10^3/ul (1.5-7.7); Eosinophil % 0.2 %; Hematocrit 32 % (35-47); Hemoglobin 10.8 g/dL (12.0-16.0); Lymphocyte % 3.7 %; Mean Corpuscular HGB Conc 34 g/dL (31-36); Mean Corpuscular Hemoglobin 32 pg (27-31); Mean Corpuscular Volume 96 fL (80-97); Mean Platelet Volume 7.4 fL (7.4-10.4); Nucleated Red Blood Cells % 0.1; Platelet Count 375 10^3/uL (150-450); Red Blood Count 3.33 10^6 /uL (3.70-4.87); Red Cell Distribution Width 14 % (10-15); White Blood Count 16.8 10^3/uL (3.5-10.8)
[2020-12-25 04:53] LABS: Albumin 3.1 g/dL (3.2-5.2); Albumin/Globulin Ratio 1.1 (1-3); Calcium 10.6 mg/dL (8.6-10.3); EGFR African American 21.9 (>60); EGFR Non-African American 18.1 (>60); Globulin 2.8 g/dL (2-4); Total Bilirubin 1.1 mg/dL (0.2-1.0); Total Protein 5.9 g/dL (6.4-8.9)
[2020-12-25] MEDS: Heparin 5000 UNITS/ML 1 mL VIAL SUBCUT SCH ×2 (05:04→14:48)
[2020-12-25 05:21] LABS: Potassium 4.3 mmol/L (3.5-5.0)
[2020-12-25] MEDS: Albumin Human 25% 25 GM/100 ML BTL IV SCH ×2 (06:41→09:49)
[2020-12-25] MEDS ORDERED: Dextrose 50% Syringe 50 ml 25 GM/50 ML SYRINGE IV PUSH PRN (07:46)
[2020-12-25] MEDS ORDERED: Albumin Human 25% 25 GM/100 ML BTL IV ONE (09:25)
[2020-12-25] MEDS: cefTRIAXone 2 GM ADDV.VIAL 2 GM in NS 0.9% 100 ml BAG 100 ML IV SCH (09:49)
[2020-12-25] MEDS: Multivitamins/Minerals TAB PO SCH (10:32)
[2020-12-25] MEDS ORDERED: Albumin Human 25% 12.5 GM/50 ML BTL IV ONE (11:15)
[2020-12-25] MEDS ORDERED: Phytonadione Oral Solution 5 MG/25 ML UDC PO ONE (12:51)
[2020-12-25] MEDS ORDERED: Desmopressin Acetate 20 MCG in NS 0.9% 50 ML 50 ML IVPB ONE (13:30)
[2020-12-25 15:11] LABS: PCO2 Arterial 33 mmHg (35-45); PO2 Arterial 72 mmHg (80-100)
[2020-12-25] MEDS ORDERED: Albumin Human 25% 25 GM/100 ML BTL IV SCH (16:31)
[2020-12-25] MEDS ORDERED: Iodixanol (CONTRAST) 320 MG/ML 100 ML SDV IV ONE (16:55)
[2020-12-25] MEDS: Pantoprazole VIAL 40 MG VIAL IV SCH (18:21)
[2020-12-25] MEDS: Morphine 2 MG/ML SYRINGE IV PRN (22:13)
[2020-12-26] MEDS: Octreotide Acetate 500 MCG in NS 0.9% 100 ml BAG 100 ML IV SCH ×2 (00:55→10:58)
[2020-12-26] MEDS: Norepinephrine 16MCG/ML IVPRE 4,000 MCG/250 ML BAG IV SCH ×3 (04:20→14:10)
[2020-12-26] MEDS: Morphine 2 MG/ML SYRINGE IV PRN ×6 (05:44→19:11)
[2020-12-26 06:05] LABS: ABS Eosinophils 0.1 10^3/ul (0-0.6); ABS Lymphocytes 0.7 10^3/ul (1.0-4.8); ABS Monocytes 0.9 10^3/ul (0-0.8); ABS Neutrophils 17.9 10^3/ul (1.5-7.7); Eosinophil % 0.7 %; Hematocrit 26 % (35-47); Hemoglobin 8.7 g/dL (12.0-16.0); Lymphocyte % 3.5 %; Mean Corpuscular HGB Conc 33 g/dL (31-36); Mean Corpuscular Hemoglobin 32 pg (27-31); Mean Corpuscular Volume 96 fL (80-97); Mean Platelet Volume 7.3 fL (7.4-10.4); Nucleated Red Blood Cells % 0.1; Platelet Count 233 10^3/uL (150-450); Red Blood Count 2.72 10^6 /uL (3.70-4.87); Red Cell Distribution Width 14 % (10-15); White Blood Count 19.6 10^3/uL (3.5-10.8)
[2020-12-26 06:24] LABS: Calcium 10.8 mg/dL (8.6-10.3); EGFR African American 20.3 (>60); EGFR Non-African American 16.8 (>60); Potassium 3.8 mmol/L (3.5-5.0)
[2020-12-26] MEDS ORDERED: Saline FLUSH-CENTRAL 10 ML SYRINGE CENT\\PICC SCH (08:00)
[2020-12-26 08:04] LABS: Albumin 3.2 g/dL (3.2-5.2); Direct Bilirubin 0.7 mg/dL (0.03-0.18); Indirect Bilirubin 0.5 mg/dL (0.3-1.0); Total Bilirubin 1.2 mg/dL (0.2-1.0)
[2020-12-26] MEDS ORDERED: Linezolid 600 MG IVPREMIX(*) 600 MG/300 ML BAG IVPB SCH (09:00)
[2020-12-26] MEDS ORDERED: Rifaximin 20 mg/mL Suspension (Pharmacy to Compound) G TUBE SCH (09:00)
[2020-12-26] MEDS: Albumin Human 25% 25 GM/100 ML IV SCH ×3 (09:15→13:59)
[2020-12-26] MEDS: cefTRIAXone 2 GM ADDV.VIAL 2 GM in NS 0.9% 100 ml BAG 100 ML IV SCH (09:16)
[2020-12-26] MEDS: Multivitamins/Minerals TAB PO SCH (09:17)
[2020-12-26] MEDS ORDERED: Morphine 2 MG/ML SYRINGE ONE (15:44)
[2020-12-26] MEDS ORDERED: Morphine 2 MG/ML SYRINGE IV ONE (15:57)
[2020-12-26] MEDS ORDERED: Lorazepam PYXIS KEY PRN ×2 (16:42→18:22)
[2020-12-26] MEDS: LORazepam 2 mg VIAL 1 ml IV PUSH PRN ×2 (16:53→18:25)
[2020-12-26 17:25] VITALS: BP 70/37
[2020-12-26] MEDS ORDERED: LORazepam 2 mg VIAL 1 ml IV PUSH PRN (18:22)
[2020-12-27] MEDS ORDERED: Levothyroxine 100 MCG/5 ML VIAL IV SCH (06:00)
[2020-12-27] MEDS ORDERED: Albumin Human 25% 25 GM/100 ML BTL IV SCH (09:00)
[2020-12-27 13:19] LABS: Alpha 1 Antitrypsin A1A 211 mg/dL (100 - 190)
== END 2020-12-26 01:00 | disposition expired | DRG 871 ==
LOC: ED 12:07 → ICU 21:04
PROVIDERS: ADMIT Hospitalist; ATTEND Hospitalist